=== PATIENT | female | born 1985 | race Caucasian/White ===

== ENCOUNTER 2021-07-30 17:16 | Emergency (ER) | payer BC, OTHER ==
[2021-07-30 17:47] VITALS: BP 112/77; PULSE 92; TEMP 98.1; BMI 24.2
== END 2021-07-30 21:20 | disposition home or self-care (01) ==
LOC: JER 17:16
DX: J06.9 Acute upper respiratory infection, unspecified (principal); Z11.52 Encounter for screening for COVID-19
CPT/HCPCS: 71045-TC-FY; 99284-25; C9803; U0003; U0005